=== PATIENT | female | born 1980 | race Caucasian/White ===

== ENCOUNTER 2025-03-07 12:19 | Emergency (ER) | payer BC, SELFPAY ==
[2025-03-07 12:20] VITALS: BP 150/106; PULSE 96; RESP 19; TEMP 36.8; O2SAT 98; BMI 35.3
--- NOTE | 2025-03-07 13:26 | EKG12_ITS ---
Test Reason : COUGH Blood Pressure : */* mmHG Vent. Rate : 80 BPM Atrial Rate : 80 BPM P-R Int : 134 ms QRS Dur : 84 ms QT Int : 358 ms P-R-T Axes : 52 -5 6 degrees QTcB Int : 412 ms Normal sinus rhythm with sinus arrhythmia POOR R WAVE PROBRESSION, BORDERLINE Confirmed by Paresh Franklin ([id number]), clinical editor NISHA PETERSEN ([id number]) on 03/12/2025 12:08:04 PM Referred By: Confirmed By: Paresh Franklin
--- NOTE | 2025-03-07 13:27 | EX.ED.VIS.UR ---
HPI HPI - URI History of Present Illness Chief Complaint: Cough Informant: patient Onset/Context/Timing Onset: Weeks Context: Gradual Onset Timing: Intermittent Current Severity: Mild Maximum Severity: Mild Associated Symptoms Associated Symptoms: Positive for Productive Cough (White phlegm.) Narrative Narrative: 44-year-old female no Cee[facility] past medical or surgical history. States she has had a cough for the last 2 weeks. Time she gets short of breath with it. Productive of white phlegm. No fever. No chills. No diarrhea. No hemoptysis. No chest pain. No leg pain or swelling. Prior similar symptoms: No Recent Illness/Hospitalization: No ROS ROS ED ROS Narrative Cough. Constitutional Constitutional ED: Denies chills or fever(s) Eyes Eyes: Denies blurry vision ENT ENT ED: Denies ear pain Cardiovascular Cardiovascular: Denies chest pain, orthopnea, palpitations, paroxysmal nocturnal dyspnea or racing heartbeat Respiratory/Chest Respiratory/Chest: Reports cough, dyspnea and sputum; Denies dyspnea on exertion, orthopnea or paroxysmal nocturnal dyspnea Gastrointestinal Gastrointestinal: Denies abdominal pain, diarrhea, nausea or vomiting Genitourinary Genitourinary ED: Denies dysuria or hematuria Musculoskeletal Musculoskeletal: Denies arthralgias Integumentary Denies abscess Neurologic Neurologic: Denies headache(s) Psychiatric Psychiatric: Denies anxiety Endocrine Endocrinology: Denies cold intolerance Hematologic/Lymphatic Hematologic/Lymphatic: Denies easy bleeding, easy bruising or lymphadenopathy Allergic/Immunologic Allergic/Immunologic ED: Denies mouth swelling, tongue swelling or urticaria PFSH PFSH Medical History no medical history no medical history Allergy/AdvReac Type Severity Reaction Status Date / Time No Known Allergies Allergy Verified 03/07/25 12:20 Social History Smoking Status: Unknown if ever smoked EXAM Physical Exam Narrative Exam Narrative: Well-appearing 44-year-old female. Sitting upright in bed. Vital signs are stable afebrile. Pulse ox 90% on room air no signs of hypoxia. H EENT exam pupils round react light. Extra motions are intact. Moist mucous membranes. Neck nontender. No JVD. No lymphadenopathy. Lungs clear to auscultation bilaterally. Heart regular rhythm rate about 90 no murmur. Chest wall ribs nontender. Abdomen soft nontender. Moving all 4 extremities. Normal range of motion. Normal strength. Calves are nontender without edema or cords. Neurologically she is awake and alert no focal motor deficits. Back nontender. Very benign exam. Unremarkable vital signs. Const Vital Signs: 03/07/25 12:20 03/07/25 13:06 Temperature 98.2 F Temperature Source Oral Pulse Rate 96 Respiratory Rate 19 H Respiratory Effort Normal Respiratory Depth Normal Respiratory Pattern Normal Blood Pressure 150/106 H Blood Pressure Mean 120 Pulse Ox 98 Oxygen Delivery Method Room Air Positive well nourished and well developed; Negative for cachectic or contractures General Appearance ED: well developed and NAD; Negative for cachectic, contractures, cyanotic, diaphoretic or pallor Nutritional Appearance: Negative for cachectic HEENT Reports moist mucous membranes atraumatic Throat: posterior oropharynx normal Eyes PERRL and EOMs intact bilaterally Neck no lymphadenopathy, supple, no meningeal signs and no JVD General: Negative for anterior neck swelling or lymphadenopathy Resp normal respiratory effort and clear to auscultation bilaterally Effort and Inspection: Negative for retractions Auscultation: Negative for rales, rhonchi, wheezes or diminished lung sounds Cardio S1 normal heart sound, S2 normal heart sound and no murmurs Rate: regular rate Rhythm: regular rhythm GI non-tender, non-distended and no masses Inspection: Negative for abdominal distention Auscultation: normoactive bowel sounds Palpation: soft; Negative for tender, guarding or mass Back/Spine no CVA tenderness and normal ROM General Back: Negative for CVA tenderness Cervical Spine: Negative for cervical spine tenderness Thoracic Spine / Upper Back: Negative for thoracic spinal tenderness Lumbar Spine / Lower Back: Negative for lumbar spinal tenderness Sacrum: Negative for tenderness Extremity normal to inspection and full ROM General Extremety ED: Negative for cyanosis, tenderness or other findings General Extremity: Negative for cyanosis or other findings Neuro oriented x3, CN's II-XII intact bilaterally and no sensory deficits noted Sensorium / Orientation: alert, oriented to person, oriented to place and oriented to time; Negative for orientation impaired, lethargic or stuporous Motor Exam: strength 5/5 throughout; Negative for general weakness or strength abnormal Psych mental status grossly normal Appearance: Negative for other Attitude: No agitated Mood & Affect: Negative for depressed, anxious or tearful Skin General Skin Exam: Negative for jaundice or pallor Lesions: no lesions Rashes: no rashes Trauma: Negative for abrasion, laceration or puncture MDM MDM MDM Narrative Medical decision making narrative: 44-year-old female benign exam suspect viral URI. She has had symptoms for 2 weeks I do not think COVID flu RSV would be helpful. Chest x-ray will be obtained but clinically I do not think she has a pneumonia. No signs of failure or effusion on exam. EKG will be obtained also. But this does not sound cardiac. She has no history of risk factors for DVT or PE also. Repeat exam at around 2:25 PM patient doing well. Her EKG and chest x-ray were unremarkable which I went over with her. Suspect this is a viral URI. Did not do viral testing due to her symptoms being more than 2 weeks in length. Patient is comfortable with the plan to be discharged home outpatient follow-up as needed. History & Record Review Discussion w/independent historian: Patient Additional record(s) reviewed:: No prior records Lab Data Attestation: I reviewed the patient's lab results. Radiography Chest X-Ray - ED: 2 View, Read by ED Physician, Read by Radiologist, Heart, Lungs, Mediastinum, Bony Structures, No Acute Disease and Chronic Changes Diagnostic Testing: Clinical Impression(s) from Imaging Studies Chest X-Ray 03/07/25 13:52 IMPRESSION: NEGATIVE CHEST Reading Location: [facility] Chest x-ray, 2 views, AP and lateral, interpreted by myself and the radiologist shows no acute abnormality. Normal cardiac silhouette. Normal lung ryan. No pneumonia. No infiltrates. No effusions Rhythm Strip Rhythm Strip: Sinus Rhythm Rate: 80 Ectopy: None EKG Initial EKG: Attestation: I personally reviewed and interpreted this EKG as follows: Interpretation: Sinus Rhythm and No Acute Injury Pattern Comments: Normal sinus rhythm rate 80 no acute signs of LA or ischemia. No dysrhythmia. Discharge Plan Triage Chief Complaint: Cough ED Provider: Amari Triana Dx/Rx/DC Orders Clinical Impression: Viral URI Instructions: ED URI, Viral, No Abx (Adult) Primary Care Provider: Pascale Fitzgerald NP Referrals: Pascale Fitzgerald NP, [facility] [facility] [Primary Care Provider] - 1 Week if not improving Activity Restrictions/Additional Instructions: Your EKG and chest x-ray were normal. No pneumonia. I suspect this was a viral respiratory infection that we will take another week or 2 to clear up. Follow-up with your primary care provider if not improving. We do not need to give you any antibiotics at this time. Print Language: Sami Disposition Disposition: Home, Self Care
--- NOTE | 2025-03-07 13:34 | ED.RN ---
NO OLD EKGS
--- NOTE | 2025-03-07 13:52 | RAD_ITS ---
PROCEDURE: CHEST PA AND LATERAL 03/07/2025 REASON FOR EXAM: COUGH TECHNIQUE: Frontal and lateral views of the chest. COMPARISON: None. FINDINGS: Hardware: None. Heart: The heart size is normal. Mediastinum: The mediastinal contour is unremarkable. Lungs: No focal consolidation, pleural effusion or pneumothorax. Bones: Degenerative changes are identified within the thoracic spine. RAD/Chest PA and Lateral IMPRESSION: NEGATIVE CHEST Reading Location: [id number]
[2025-03-07 14:30] VITALS: BP 150/106; PULSE 96; RESP 19; TEMP 36.8; O2SAT 98
== END 2025-03-07 14:39 | disposition home or self-care (01) ==
PROVIDERS: Emergency Provider Emergency Medicine; PCP Registered Nurse; Visit Provider Emergency Medicine
DX: J06.9 Acute upper respiratory infection, unspecified (principal)
CPT/HCPCS: 71046; 93005; 99282